=== PATIENT | male | born 1995 | race Caucasian/White ===

== ENCOUNTER 2020-06-11 07:48 | Emergency (ER) | payer SELFPAY ==
[2020-06-11 07:54] VITALS: BP 145/93; PULSE 94; RESP 18; TEMP 36.6; O2SAT 99; BMI 25.0
--- NOTE | 2020-06-11 07:59 | US_ITS ---
PROCEDURE: US TESTICULAR CLINICAL INDICATION: Right testicular pain 5 days, fever 1st couple of days COMPARISON: No exams were available for comparison FINDINGS: There is diffuse swelling of the right testicle the somewhat heterogenic appearance. There is no vascular flow to the testicle. There is swelling of the epididymis as well. There is mild diffuse skin swelling of the right hemiscrotum. The left testicle and epididymis appear normal and there is normal flow to left testicle. IMPRESSION: Right testicular torsion with epididymitis as well, normal appearing left testicle and epididymis Dictated by: Dr. Obed Grady MD 06/11/2020 09:18 Dr. Obed Grady MD in [place] 06/11/2020 09:18
--- NOTE | 2020-06-11 08:00 | HMH.EDUROGM ---
ED Disposition Clinical Impression: Right testicular torsion Disposition: Xfer Short-Term Hosp Condition on Discharge: Good Referrals: Keely Trevino [Primary Care Provider] - - Critical Care Critical Care Time: No Attestation: On , the high probability of a clinically significant, sudden or life threatening deterioration of the following system(s) required my full and direct attention, intervention and personal management. The time I documented below is in addition to time spent performing reported procedures but includes the following listed in this critical care notation. Medical Decision Making - Manuel Inquiry Pt receiving controlled substance: No Manuel was queried for this patient: No Vital Signs: 06/11/20 07:54 Temperature 97.9 F Temperature Source Oral Pulse Rate [Radial] 94 H Respiratory Rate 18 Blood Pressure [Right Arm] 145/93 H Blood Pressure Mean [Right Arm] 110 Blood Pressure Source [Right Arm] Automatic Cuff Blood Pressure Position [Right Arm] Sitting 02 Sat by Pulse Oximetry 99 Oxygen Delivery Method Room Air - Lab Data Lab Results 06/11/20 08:24: WBC 9.2, RBC 5.55, Hgb 17.4, Hct 50.2, MCV 90.5, MCH 31.3 H, MCHC 34.6, RDW 13.1, Plt Count 238, MPV 7.3 L, Neut % (Auto) 79.9, Lymph % (Auto) 13.0, Kern % (Auto) 6.5, Eos % (Auto) 0.5, Baso % (Auto) 0.2, Neut # (Auto) 7.3, Lymph # (Auto) 1.2, Kern # (Auto) 0.6, Eos # (Auto) 0.1, Baso # (Auto) 0.0 06/11/20 08:24: Sodium 138, Potassium 4.4, Chloride 98, Carbon Dioxide 31 H, Anion Gap 13.4, BUN 20, Creatinine 1.10, Estimated Creat Clear 112, Estimated GFR 84, Est GFR ( Amer) 101, Glucose 100, Calcium 9.7, Total Bilirubin 0.7, AST 31, ALT 29, Alkaline Phosphatase 80, Total Protein 7.8, Albumin 4.5, Globulin 3.3 H, Albumin/Globulin Ratio 1.4 Result diagrams: 06/11/20 08:24 06/11/20 08:24 Orders (Tests/Meds): ORDERS Category Date Time Status Urinalysis and Microscopic Stat Lab 06/11/20 08:10 Received Blood Culture Stat Micro 06/11/20 08:24 Received Testicular US [US Testicular] Stat Ultrasound 06/11/20 07:59 Taken Medical Decision Narrative: 24yo M evaluated for right testicle pain and swelling. Differential exam included was not limited to: Epididymitis, testicular mass, torsion, STI, spermatocele, hydrocele. Exam is unremarkable except for a significantly swollen and tender right testicle. Very firm to palpate. Mild warmth to the scrotum along with scrotal erythema. The left side remains unaffected. Labs and scrotal ultrasound have been ordered. US tech reports there is no blood flow to the R testicle on her exam; radiologist overread still pending. Local URO is not available today. Transfer request initiated to at 09. Dr. Gonzalez at agrees to evaluate the pt at . Male Urogenital HPI - General Chief complaint: Urogenital-Male Stated complaint: Swellin in L testicle Time Seen by Provider: 06/11/20 08:00 Mode of Arrival: Ambulatory Source of Information: Patient Limitations: No Limitations Description of Symptoms (Recalled from ER Triage Doc. by RN): Swollen testicle since Sunday. States that he is in a lot of pain. No difficulty with urination. - History of Present Illness HPI Narrative: 24yo Alphonse w/ R testicle pain and swelling that began on Sunday and has progressively worsened. Pain is worse with ambulation, palpation. Elevation, warmth/ice was improving symptoms but is not as effective anymore. Patient's father is at bedside reports they had amoxicillin at home which the patient took 3 times a day for roughly 2 days before they tried more natural cures for infection. He denies any penile discharge or lesion. He endorses previous episode similar to this, however not as severe. He is uncertain how long ago that was. Reports this only happened once. Denies any systemic signs or symptoms. - Related Data Allergies Allergy/AdvReac Type Severity Reaction Status Date / Time No Known Allergies Allergy Veri
--- NOTE | 2020-06-11 08:38 | PC.NURSE ---
pt gone to radiology
[2020-06-11 08:39] LABS: Basophils % 0.2 % (0.1-2.0); Eosinophils # 0.1 K/mm3 (0.0-0.4); Eosinophils % 0.5 % (0.1-12.0); Hematocrit 50.2 % (42.0-52.0); Hemoglobin 17.4 g/dL (14.1-18.0); Lymphocytes # 1.2 K/mm3 (0.7-4.5); Mean Corpuscular HGB Conc 34.6 g/dL (31.8-35.4); Mean Corpuscular Hemoglobin 31.3 pg (27.0-31.2); Mean Corpuscular Volume 90.5 fl (80-94); Mean Platelet Volume 7.3 fl (7.4-10.4); Monocytes # 0.6 K/mm3 (0.1-1.0); Monocytes % 6.5 % (1.7-9.3); Neutrophils # 7.3 K/mm3 (1.8-7.8); Neutrophils % 79.9 % (37.0-80.0); Platelet Count 238 K/mm3 (142-424); Red Blood Count 5.55 M/mm3 (4.60-6.20); Red Cell Distribution Width 13.1 % (11.5-17.5); White Blood Count 9.2 K/mm3 (4.8-10.8)
[2020-06-11 08:43] LABS: Chloride 98 mmol/L (98-107); Potassium 4.4 mmoL/L (3.5-5.1); Sodium 138 mmol/L (136-145)
[2020-06-11 08:46] LABS: Alanine Aminotransferase 29 U/L (12-78); Albumin Level 4.5 g/dl (3.5-5.0); Albumin/Globulin Ratio 1.4 (1.1-1.8); Alkaline Phosphatase 80 U/L (38-126); Anion Gap 13.4 mEq/L (5-15); Aspartate Amino Transferase 31 U/L (17-59); Bilirubin,Total 0.7 mg/dl (0.2-1.3); Blood Urea Nitrogen 20 mg/dl (9-20); Carbon Dioxide 31 mmol/L (22.0-30.0); Creatinine Clearance Estimated 112 mL/min (50-200); Estimated Glomerular Filt Rate 84 ml/min (>60); GFR (African American) 101 ML/MIN (>60); Globulin 3.3 g/dL (1.3-3.2); Total Protein,Serum 7.8 g/dl (6.3-8.2)
[2020-06-11 08:47] LABS: Calcium 9.7 mg/dl (8.4-10.2); Glucose 100 mg/dl (74-100)
--- NOTE | 2020-06-11 08:57 | PC.NURSE ---
Patient back from radiology
--- NOTE | 2020-06-11 09:05 | PC.NURSE ---
pt taken to restroom.
--- NOTE | 2020-06-11 09:06 | PC.NURSE ---
call placed to [facility] for transfer for testicular torsion.
--- NOTE | 2020-06-11 09:08 | PC.NURSE ---
pt back in room. Urine sent to lab.
[2020-06-11 09:13] LABS: Microscopic, Urine URINE MICROSCOPIC (MICROSCOPIC)
[2020-06-11 09:14] LABS: Appearance,Urine CLEAR (Clear); Bilirubin,Urine Negative (Negative); Blood, Urine Negative (Negative); Color,Urine YELLOW (Yellow); Glucose,Urine (UA) Negative (Negative); Ketones,Urine Negative (Negative); Leukocyte Esterase,Urine Negative (Negative); Nitrate,Urine Negative (Negative); PH,Urine 5.5 (5.0-8.5); Protein,Urine Negative (Negative); Urobilinogen,Urine 0.2 EU/dl (0.2)
--- NOTE | 2020-06-11 09:15 | PC.NURSE ---
Addendum entered by Sonam Barber RN 06/11/20 09:15: [facility] Original Note: Pt accepted at urology Dr Gonzalez, to be transfered to ED. Pt going POV per .
[2020-06-11 09:30] VITALS: BP 128/81; PULSE 85; RESP 12; TEMP 36.4; O2SAT 99
[2020-06-11 09:32] LABS: Squamous Epithelial Cell,Urine Occasional #/hpf (0-5)
[2020-06-15 11:09] LABS: Neisseria gonorrhoeae, NAA Negative (Negative)
== END 2020-06-11 09:33 | disposition short-term general hospital (02) ==
PROVIDERS: Emergency Provider Family Medicine; PCP Nurse Practitioner Family
DX: N44.00 Torsion of testis, unspecified (principal)
CPT/HCPCS: 76870; 80053; 81001; 85025; 87040; 87491; 87591; 99284

== ENCOUNTER 2020-06-14 14:01 | Day surgery (SDC) | payer SELFPAY ==
[2020-06-14] VITALS (13 sets, daily range): BP systolic 129–138; BP diastolic 70–85; PULSE 70–92; RESP 16–18; TEMP 36.4–43; O2SAT 95–100; BMI 23.9
[2020-06-14 15:02] LABS: Coronavirus 19 IgG Antibody Positive (Negative); Coronavirus 19 IgM Antibody Negative (Negative)
--- NOTE | 2020-06-14 16:53 | HMH.ANESI ---
[facility] Anesthesia Record Part I Intake, IV Amount: 900 Estimated blood loss (mL): 10 Urine output (mL): 0 (NM) Blood Products used (#): none Blood Pressure: 132/70 SaO2: 96 Pulse Rate: 70 Respiratory Rate: 16 Temperature: 97.6 F Patient is:: Drowsy, Stable Stable to PACU at:: 16:47
--- NOTE | 2020-06-14 17:17 | HMH.OPNOTE ---
Date of procedure: 06/14/20 Pre-op Diagnosis:: Right testicular torsion of an 8-day duration Post-op Diagnosis:: Same Procedure performed:: Scrotal exploration, right simple orchiectomy, left orchidopexy Surgeon:: Laci Gonzales MD WELLNESS NURSE:: Abdi Young Anesthesia: GETA Estimated blood loss (mL): 10 Clinical Note:: Patient is a 24-year-old [facility] male with an 8-day history of right testicular pain. He presented to the emergency room on Sunday where an ultrasound showed lack of blood flow to the testicle. He was referred to urology who saw him and assessed him. Since he was past the critical cut off for salvage of the right testicle due to torsion day explained to him that they could take it out on Sunday or he could have it taken out at [facility] in the near future. They opted to return to [facility] and I saw the patient today and he has clinical signs of testicular torsion. We discussed proceeding with scrotal exploration, probable right simple orchiectomy and left orchidopexy. Operative findings:: There was an intravaginal torsion of the right testicle. Simple orchiectomy was performed and left orchidopexy was performed. Left testicle appeared normal. Operative note:: Patient taken to the operating room after informed consent was obtained. Is placed on the operating table in the supine position and general anesthesia administered. Preoperative antibiotics and sequential compression devices placed. He was then prepped and draped in the standard surgical fashion. Cord block was utilized in the right inguinal region with 20 cc of local anesthetic. 10 cc were placed into the left cord above the left external ring. Local anesthetic was also placed into the midline raphae. The incision was then made in the midline raphae and carried down through the dartos fascia. The underlying clinical layer was very adherent to the dartos fascia and sharp and blunt dissection was used to dissect the tunica albuginea off of the dartos fascia. The testicle was then delivered through the incision. The tunica vaginalis was incised and the testicle was noted to be very dark in blackish in color. There was an obvious intravaginal portion of the testicle. The cord structures were very adherent to their surrounding tissue. Cord structures were dissected free and the testicle was untwisted but there was no change in its color. I then dissected the vas deferens from the vascular structures and two 2-0 Vicryl sutures were placed around the vas and the vas was ligated between them. Vascular structures were clamped with 3 clamps and the testicle divided between the distalmost clamp and the middle clamp. A 0 Vicryl stick tie was used to ligate the most distal end of the cord in the 0 silk suture was placed on the more proximal end of the cord and tied securely. The clamps were removed and the ends of the cord was cauterized. No bleeding was noted. Hemostasis achieved of the underlying critical structures and attention was turned to the left testicle. Through the same incision the dartos fascia was opened on the left side over the left testicle and extended for about 3 inches. The left testicle is visible underneath the tunical layer and was within normal limits. Three 4-0 Prolene sutures were then used to pexied the medial aspect of the testicle to be septum. Made sure that the testicle was going to lie in its normal position before pexing. A good result was noted. Hemostasis achieved and the right dartos layer was then closed separately from the left dartos layer. 3-0 chromic's were used for this. The subdermal layer was brought together with a couple of chromic interrupted sutures and the skin was then closed with 4-0 chromic's in a horizontal mattress fashion. Neosporin applied on the incision and a sterile dressing applied. Compression jockstrap was placed over the dressing. There is minimal blood loss and patient tolerated the procedure
--- NOTE | 2020-06-14 18:30 | P.PN_ITS ---
[facility] Anesthesia Record Part II Discharge Time: 17:17 Destination: Surgical Day Care (OP Surgery) PACU nurse assessment reviewed?: Yes Patient Condition:: Good Anesthesia Complications:: None Swallowing reflex intact?: Yes Cyanosis?: No Blood Pressure: 131/76 Pulse Rate: 85 Temperature: 97.6 F Mental Status: Alert & Oriented Pain level:: 0 Nausea and/or vomitting:: None Intake, IV Amount: 0
--- NOTE | 2020-06-16 10:34 | P.PN_ITS ---
[facility] Anesthesia Checklist - Patient Identification Patient Identification: Arm Band - Structural Data Admitted From: Home Planned Operative Procedure/s: Right Orchiectomy, Left orchidopexy Consent for Planned Operative Procedure(s) Verified: Yes Verified Documents: Surgical Consent, History and Physical - NPO Status Verified Time NPO: 00:00 - Additional verifications Anesthesia Reactions: No Hx Blood Transfusions: No - Airway Assessment C-Spine Mobility Assessed: Yes (mp2) TMJ Mobility Assessed: Yes Dentition: Good Dentition - Neurological Assessment Level of Consciousness: Awake, Alert - Anesthesia Plan Anesthesia Risk discussed: Yes Anesthesia Plan: Verified ASA Class: I Anesthesia Type: General [facility] History I have reviewed the patient's past medical history: Yes Medical History: Denies:: Cancer, Diabetes Mellitus Type 1, Diabetes Mellitus Type 2, MRSA, Seizures *Have you ever received a pneumonia vaccine?: No *Have you received a flu vaccine this season?: No Anesthesia experience/problems:: nac Other Surgeries: Yes: No Previous Surgery Amputation: No Fractures: No - *Social History Last grade of school completed: 7th or 8th Smoking Status: Never smoker Alcohol Intake: never Substance Use Type: denies use *Occupational Status:: employed Housing: house Household Members: family *Travel in the last 8 weeks: None Family Hx:: Hypertension
== END 2020-06-14 18:05 | disposition home or self-care (01) ==
LOC: OR 14:01
PROVIDERS: Visit Provider Urology
PROC: (CPT 54520; principal; 2020-06-14 14:00)
DX: N44.00 Torsion of testis, unspecified (principal)
CPT/HCPCS: 54520; 54640; 86328; 96374; J2405